=== PATIENT | male | born 1985 | race Caucasian/White ===

== ENCOUNTER 2017-11-01 17:42 | Emergency (ER) | payer BC, OTHER ==
--- NOTE | 2017-11-01 18:51 | EDM.PDOC ---
ED HPI GENERAL MEDICAL PROBLEM - General Chief Complaint: ENT Problem Stated Complaint: CONTINUOUS NOSE BLEED OUT OF BOTH NOSTRILS Time Seen by Provider: 11/01/17 18:00 Source of Information: Reports: Patient History Limitations: Reports: No Limitations - History of Present Illness INITIAL COMMENTS - FREE TEXT/NARRATIVE: 32 year old male presents for evaluation and treatment of chronic nose bleeds. Reports he has been struggling with nose bleeds for several years. States he has has a constant nosebleed for the last 2 weeks. Reports black stools due to the nosebleeds. States they last anywhere from 10-15 minutes to 2-3 hours. Reports he has been seen by multiple doctors over the years and had coagulation studies done which have shown no abnormalities. Has never seen ENT. Reports both nares are involved. Reports the blood often goes down his throat. Has tried vaseline to the nares, humidity, etc. No lightheadedness, dizziness or syncope. - Related Data Allergies Allergy/AdvReac Type Severity Reaction Status Date / Time Penicillins Allergy Hives Verified 06/12/16 14:10 Home Meds: Home Meds . [No Known Home Meds] 11/19/14 [History] Past Medical History - Past Health History Medical/Surgical History: Denies Medical/Surgical History HEENT History: Reports: Epistaxis Social & Family History - Tobacco Use Smoking Status *Q: Never Smoker Second Hand Smoke Exposure: No - Caffeine Use Caffeine Use: Reports: Soda - Recreational Drug Use Recreational Drug Use: No ED ROS ENT - Review of Systems Review Of Systems: See Below HEENT: Reports: Nosebleed Cardiovascular: Denies: Lightheadedness Neurological: Denies: Dizziness, Syncope ED EXAM, ENT - Physical Exam Exam: See Below Exam Limited By: No Limitations General Appearance: Alert, WD/WN, No Apparent Distress Ears: Normal External Exam Nose: Normal Inspection, Dried Blood (bilateral nares; no identifible site of bleeding appreciated). No: Septal Hematoma, Septal Perforation, Active Bleeding Mouth/Throat: Normal Inspection, Normal Gums, Normal Lips, Normal Oropharynx, Other (no blood in the posterior oropharynx) Respiratory/Chest: No Respiratory Distress, Lungs Clear, Normal Breath Sounds Cardiovascular: Normal Peripheral Pulses, Regular Rate, Rhythm, No Murmur Neurological: Alert, Oriented, Normal Cognition Psychiatric: Normal Affect, Normal Mood Skin: Warm, Dry, Normal Color Course - Vital Signs Last Recorded V/S: Last Vital Signs Temp 36.6 C 11/01/17 17:49 Pulse 68 11/01/17 19:03 Resp 16 11/01/17 19:03 BP 134/95 H 11/01/17 19:03 Pulse Ox 98 11/01/17 19:03 - Orders/Labs/Meds Orders: Active Orders 24 hr Category Date Time Status Orthostatic Vital Signs [RC] ASDIRECTED Care 11/01/17 18:26 Active - Re-Assessments/Exams Free Text/Narrative Re-Assessment/Exam: 11/01/17 18:42 The patient would like me to cauterize his nose today. He has no active bleeding at this time. I feel he would be best served by ENT. Given the question of posterior nosebleeds and the chronic nature of the nosebleeds he should seen ENT. Referral given. Discharge instructions as documented. Departure - Departure Time of Disposition: 18:49 Disposition: Home, Self-Care 01 Condition: Fair Clinical Impression: Nosebleed - Discharge Information Instructions: Nosebleed, Adult, [id number] Referrals: PCP,None [Primary Care Provider] - Gil Bazzi MD [Ordering Only Provider] - Forms: ED Department Discharge Additional Instructions: Follow-up in Dr. Bazzi in [place]. Call [phone] to schedule an appointment with him. If you do extensive an acute nosebleed apply pressure. Also recommend using over -the-counter Afrin nasal spray. This is a vasoconstricted. Use 1 or 2 sprays in each nostril that is bleeding. Recommend using humidity. You may also apply Vaseline or triple antibiotic ointment the interior nare. Please return to the ER if your symptoms change or worsen. - My Orders Last 24 Hours: My Active Orders 11/01/17 18:26 Orthostatic Vital Signs [RC] ASDIRECTED - Assessment/Plan Last 24 Hours: My Active Orders 11/01/17 18:26 Orthostatic Vital Signs [RC] ASDIRECTED
[2017-11-01 21:41] VITALS: BP 134/95
== END 2017-11-01 19:03 | disposition home or self-care (01) ==
LOC: JD.ED 17:42
DX: R04.0 Epistaxis (principal); Z88.0 Allergy status to penicillin
CPT/HCPCS: 99283

== ENCOUNTER 2024-05-16 16:33 | Emergency (ER) | payer BC ==
[2024-05-16] MEDS ORDERED: Sodium Chloride 0.9% 100 ML IV SCH (17:45)
[2024-05-16] MEDS: Iopamidol 755 Mg/ML 100 ML Bottle IVPUSH ONE (18:01)
[2024-05-16 18:03] LABS: BASOPHILS ABSOLUTE AUTO 0.1 K/mm3 (0.0-0.2); BASOPHILS PERCENT AUTO 0.4 % (0.0-1.0); EOSINOPHILS PERCENT AUTO 0.2 % (0.0-6.0); IMMATURE GRAN ABSOLUTE AUTO 0.53 K/mm3 (0.00-0.05); IMMATURE GRAN PERCENT AUTO 2.9 % (0.0-0.4); LYMPHOCYTES ABSOLUTE AUTO 1.7 K/mm3 (1.0-4.8); MEAN CORPUSCULAR HEMOGLOBIN 30.3 pg (28.0-32.0); MEAN PLATELET VOLUME 9.1 fl (9.4-12.4); MONOCYTES ABSOLUTE AUTO 1.4 K/mm3 (0.0-0.8); MONOCYTES PERCENT AUTO 7.8 % (0.0-8.0); NEUTROPHILS ABSOLUTE AUTO 14.7 K/mm3 (1.8-7.7); NEUTROPHILS PERCENT AUTO 79.7 % (41.0-71.0); PLATELET COUNT,PLT 299 K/mm3 (150-400); RED BLOOD CELL COUNT 5.28 M/mm3 (4.52-5.90); WHITE BLOOD CELL COUNT,WBC 18.42 K/mm3 (3.9-11.3)
[2024-05-16] MEDS: HYDROmorphone 0.5 MG/0.5 ML Syringe IVPUSH ONE (18:24)
[2024-05-16] MEDS: Sodium Chloride 0.9% 10 ML Syringe FLUSH PRN (18:24)
[2024-05-16] MEDS: Ketorolac 30 MG/ML SDV IVPUSH ONE (18:24)
[2024-05-16 18:40] LABS: A/G RATIO 0.7 (1-2); ANION GAP 11.8 (5-15); BILIRUBIN TOTAL 0.4 mg/dL (0.2-1.0); C-REACTIVE PROTEIN 10.86 mg/dL (<0.30); CALCIUM 8.9 mg/dL (8.5-10.1); EST CRCL DRUG DOSING (CG) 101.14 mL/min; MAGNESIUM 1.8 mg/dL (1.8-2.4); POTASSIUM,K 3.8 mEq/L (3.5-5.1); PROTEIN TOTAL,TP 7.1 g/dl (6.4-8.2)
[2024-05-16 19:53] VITALS: BP 136/87; PULSE 86
[2024-05-16 19:54] LABS: CORONAVIRUS COVID-19 NAA NEGATIVE (NEGATIVE); INFLUENZA A NAA NEGATIVE (NEGATIVE); RESPIRATORY SYNCYTIAL VIR NAA NEGATIVE (NEGATIVE)
== END 2024-05-16 19:45 | disposition home or self-care (01) ==
LOC: JD.ED 16:33
DX: J18.9 Pneumonia, unspecified organism (principal); Z88.0 Allergy status to penicillin; Z79.899 Other long term (current) drug therapy
CPT/HCPCS: 0241U; 36415; 71275; 80053; 83735; 84484; 85025; 86140; 93005; 96374; 96375; 99284; J1170; J1885; J3490; Q9967; 93010

== ENCOUNTER 2024-12-29 03:19 | Emergency (ER) | payer BC ==
[2024-12-29 04:42] VITALS: BP 160/95; PULSE 98
== END 2024-12-29 04:44 ==
LOC: JD.ED 03:19
DX: Z02.89 Encounter for other administrative examinations (principal); Z88.0 Allergy status to penicillin
CPT/HCPCS: 99282; 99283